=== PATIENT | female | born 1985 | race Caucasian/White ===

== ENCOUNTER 2025-09-18 06:04 | Emergency (ER) | payer BC, SELFPAY ==
[2025-09-18 06:07] VITALS: BP 115/81; BP 121/74; PULSE 51; PULSE 60; PULSE 76; RESP 18; TEMP 36.8; O2SAT 100; O2SAT 94; O2SAT 97
[2025-09-18 06:10] VITALS: BMI 25.0
--- NOTE | 2025-09-18 06:25 | XR_ITS ---
Examination: CT abdomen with intravenous contrast CT pelvis with intravenous contrast 2-D coronal reconstructions 2-D sagittal reconstructions Date and time of exam: September 18, 2025, 0923 hours INDICATIONS: Epigastric pain with nausea blood in the urine beginning 4:00 a.m. this morning. CTDI: vol (mGy) 17.9 DLP: (mGycm) 622 Technique: Multiple axial sections of the abdomen and pelvis have been obtained. 64 slice high-resolution scanner used. 3 mm axial sections have been obtained, post intravenous injection 60 cc [id number] 2-D sagittal, coronal reconstructions obtained. Low dose protocols were performed. One or more of the following dose reduction techniques were used; automated exposure control, adjustment of the mA and/or KV according to patient size, use of iterative reconstruction technique. Findings: 7 mm right liver cysts No gallstones No splenic or pancreatic lesion Normal adrenal glands Multiple 1 to 3 mm right renal calculi Significant scarring right kidney No hydronephrosis or ureteral calculi Aorta normal size Normal appendix Bilateral ovarian follicular cysts Moderate free fluid in the pelvis Retroverted uterus Moderate disc narrowing L5-S1 Bilateral ovarian follicular cysts, the largest on the left side 16 mm Urinary bladder wall thickening IMPRESSION: Significant scarring right kidney Multiple nonobstructing right renal calculi No hydronephrosis or ureteral calculi Normal appendix Moderate free fluid in the pelvis, bilateral ovarian follicular cyst, recommend pelvic sonography follow-up Cystitis pattern
--- NOTE | 2025-09-18 06:27 | PD.EDABDPN ---
ED Abdominal Pain RME/HPI General Chief Complaint: Abdominal Pain Stated complaint: ABD PAIN Time seen by provider: 09/18/25 06:12 Arrival date/time: 09/18/25 06:04 Source: patient Limitations: no limitations RME / HPI Onset (ago): hour(s) Consistency: constant Location: diffuse Severity: moderate Severity scale (1-10): 7 Quality: cramping Radiation: back Migration to: no migration Relieving factors: nothing Exacerbating factors: nothing Context: possible food poisoning Associated symptoms: nausea, vomiting, diarrhea and chills RME / HPI narrative: At 4 AM patient started to have symptoms of nausea vomiting and diarrhea She had more than 10 times vomiting more than 10 times diarrhea associated with her abdominal pain She ate some eggs with has mayonnaise and mustard but was sitting overnight so it wants to be food poisoning Exam: General, patient is alert oriented x 4 Not in distress well-nourished Head and neck, atraumatic normocephalic Pupils equal reactive, ENT exam no mucous membranes Neck is supple tracheal stenosis was not large Chest, no chest tenderness Normal air entry bilaterally No added sounds Cardiovascular, normal heart sounds, no murmurs, no gallop, regular rate and rhythm Abdominal, Soft but tender in the right lower quadrant but no rebound Normal renal angles, bowel sounds are normal no organomegaly Genitourinary, no abdominal hernias, normal genitalia Lower extremity, no edema, no redness, no deformity Musculoskeletal, no joint effusion, no joint tenderness, Neuro, muscle power equal bilaterally, cranial nerves intact, no sensory deficits, no ataxia Skin, no rash no petechiae Impression: Acute gastroenteritis most likely secondary to food poisoning Related Data LMP Date: 09/14/25 Previous Rx's ?Medication ?Instructions ?Recorded dicyclomine 20 mg tablet 20 mg PO TID #20 tabs 09/18/25 ondansetron HCl 4 mg tablet 4 mg PO Q8H 1 week #21 tabs 09/18/25 Allergies Allergy/AdvReac Type Severity Reaction Status Date / Time No Known Allergies Allergy Verified 09/18/25 06:10 Review of Systems Review of Systems Systems Reviewed: All systems reviewed, normal except as documented Past Medical History Past Medical History PSYCHO/SOCIAL: Positive Depression Surgical History OTHER SURGICAL HX: Abdominal wall tucking Social History SMOKING STATUS: Never smoker SUBSTANCE USE: does not use ALCOHOL: Never Travel History EBOLA RISK: No ED Exam Narrative Physical exam: General, patient is alert oriented x 4 Not in distress well-nourished Head and neck, atraumatic normocephalic Pupils equal reactive, ENT exam no mucous membranes Neck is supple tracheal stenosis was not large Chest, no chest tenderness Normal air entry bilaterally No added sounds Cardiovascular, normal heart sounds, no murmurs, no gallop, regular rate and rhythm Abdominal, Soft but tender in the right lower quadrant but no rebound Normal renal angles, bowel sounds are normal no organomegaly Genitourinary, no abdominal hernias, normal genitalia Lower extremity, no edema, no redness, no deformity Musculoskeletal, no joint effusion, no joint tenderness, Neuro, muscle power equal bilaterally, cranial nerves intact, no sensory deficits, no ataxia Skin, no rash no petechiae General Limitations: Present no limitations Course Quality Measures none Orders Category Date Time Status CT Screening NOW Care 09/18/25 06:25 Completed Insert IV NOW Care 09/18/25 06:[address] abdomen pelvis w con Stat Exams 09/18/25 06:25 Completed CBC [CBC] Stat Lab 09/18/25 07:00 Completed CK [Creatine Kinase] Stat Lab 09/18/25 07:00 Completed CMP [Comprehensive Metabolic Panel] Stat Lab 09/18/25 07:00 Completed HCG,Qualitative Serum Stat Lab 09/18/25 07:00 Completed Lactic Acid [Lactate (Lactic Acid)] Stat Lab 09/18/25 07:00 Completed Lipase Stat Lab 09/18/25 07:00 Completed Procalcitonin Stat Lab 09/18/25 07:00 Completed Troponin I Stat Lab 09/18/25 07:00 Completed UA, C/S IF [Urinalysis, C/S if Indicated] Stat Lab 09/18/25 09:19 Completed Morphine* Inj Med 09/18/25 06:25 Discontinued 4 mg IVP X1 ONE Ondansetron Inj [Zofran Inj] Med 09/18/25 06:25 Discontinued 4 mg IVP X1 ONE Ringers Lactated 1000 ml [Lactated Ringers] 1,000 ml Med 09/18/25 06:25 Discontinued IV 125 mls/hr Ringers Lactated 500 ml [Lactated Ringers] 500 ml Med 09/18/25 06:25 Discontinued IV 500 mls/hr Vital Signs Vital signs: Vital Signs Temperature 98.2 F 09/18/25 06:07 Pulse Rate 60 09/18/25 06:07 Respiratory Rate 18 09/18/25 06:07 Blood Pressure 115/81 09/18/25 06:07 Pulse Oximetry (%) 100 09/18/25 06:07 Oxygen Delivery Method Room Air 09/18/25 06:07 Pulse ox is 100% on room air which is adequate. Abdominal Pain MDM MDM Narrative MDM Narrative:: Patient has generalized abdominal pain but is tender in the right lower quadrant Her picture suggest acute gastroenteritis secondary to food poisoning However there is still a small possibility of appendicitis Other possible include UTI Will get a CAT scan and a UA and CBC chemistry As far as the pain we will do morphine and Zofran for the nausea Give IV fluids Check and labs If the CAT scan is negative and the UA was negative and there is no need for antibiotics Management of food poisoning will be symptomatic only I reviewed labs and abdomen pelvis CT. Patient will be discharged home diagnosed with food poisoning, prescribed Zofran and Bentyl. Patient data External records reviewed:: [facility] previous records and EMS form Clinical information provided by:: patient and EMS Social determinants that could affect healthcare access:: none Patient has the following chronic illnesses:: none reported How is presenting disease/condition affected by chronic disease/condition?: no chronic disease Evaluation data The following diagnostics were reviewed and interpreted by me:: lab results and radiology exam(s) Lab and/or radiology exams considered but not ordered:: None Interpretation Summary: Ordering Physician: Celina Clark MD Date of Service: 09/18/25 Procedure(s): CT abdomen pelvis w con Accession Number(s): [id number] cc: Celina Clark MD; Ganesh Ornelas MD; Zaire Juarez MD~ Examination: CT abdomen with intravenous contrast CT pelvis with intravenous contrast 2-D coronal reconstructions 2-D sagittal reconstructions Date and time of exam: September 18, 2025, 0923 hours INDICATIONS: Epigastric pain with nausea blood in the urine beginning 4:00 a.m. this morning. CTDI: vol (mGy) 17.9 DLP: (mGycm) 622 Technique: Multiple axial sections of the abdomen and pelvis have been obtained. 64 slice high-resolution scanner used. 3 mm axial sections have been obtained, post intravenous injection 60 cc [id number] 2-D sagittal, coronal reconstructions obtained. Low dose protocols were performed. One or more of the following dose reduction techniques were used; automated exposure control, adjustment of the mA and/or KV according to patient size, use of iterative reconstruction technique. Findings: 7 mm right liver cysts No gallstones No splenic or pancreatic lesion Normal adrenal glands Multiple 1 to 3 mm right renal calculi Significant scarring right kidney No hydronephrosis or ureteral calculi Aorta normal size Normal appendix Bilateral ovarian follicular cysts Moderate free fluid in the pelvis Retroverted uterus Moderate disc narrowing L5-S1 Bilateral ovarian follicular cysts, the largest on the left side 16 mm Urinary bladder wall thickening IMPRESSION: Significant scarring right kidney Multiple nonobstructing right renal calculi No hydronephrosis or ureteral calculi Normal appendix Moderate free fluid in the pelvis, bilateral ovarian follicular cyst, recommend pelvic sonography follow-up Cystitis pattern Dictated By: Ganesh Ornelas MD Signed By: <Electronically signed by Ganesh Ornelas MD in [place]> 09/18/25 1008 Medications / Prescriptions Medications or Prescriptions considered but not ordered:: None Medication administrations:: Medication Administration History Discontinued Medications Lactated Ringer's (Lactated Ringers) 1,000 mls @ 125 mls/hr IV .Q8H ONE Stop: 09/18/25 14:24 Last Admin: 09/18/25 07:26 Dose: 125 mls/hr Documented By: EF Lactated Ringer's (Lactated Ringers) 500 mls @ 500 mls/hr IV .Q1H ONE Stop: 09/18/25 07:24 Last Infusion: 09/18/25 08:40 Dose: Infused Documented By: Admin: 09/18/25 07:40 Dose: 500 mls/hr Documented By: EF Morphine Sulfate (Morphine Sulf Inj 4 Mg/Ml Vial) 4 mg IVP X1 ONE Stop: 09/18/25 06:26 Last Admin: 09/18/25 07:26 Dose: 4 mg Documented By: EF Ondansetron HCl (Ondansetron Inj 2 Mg/Ml Inj 2 Ml) 4 mg IVP X1 ONE; Protocol Stop: 09/18/25 06:26 Last Admin: 09/18/25 07:25 Dose: 4 mg Documented By: EF See above Consultations Consultation(s) initiated? (list below): No Diagnosis Differential diagnosis abdominal pain: gastroenteritis Most likely diagnosis given after review of the tests above:: Food poisoning Admission Indicated Admission indicated?: not indicated Explain why admission is indicated or not indicated:: With no condition needing emergent intervention, there was no indication for admission. Admission Request Was there a request for admission?: No Disposition Plan Disposition Plan: Discharge Discharge Attestation Discharge Attestation: The patient and all family members were given an opportunity to ask questions and understood the discharge instructions. Discharge instructions specifically effects, indications for sooner follow up or return to the emergency department, and the expected course of current diagnosis. Patient condition: Stable Discharge Plan Plan Patient Disposition: HOME (Self Care) Patient condition on transfer: Stable Prescriptions/Referrals Prescriptions/Med Rec: New ondansetron HCl 4 mg tablet 4 mg PO Q8H 7 Days Qty: 21 0RF dicyclomine 20 mg tablet 20 mg PO TID Qty: 20 0RF Referrals: Zaire Juarez MD [Primary Care Provider, Family Practice] - In 1 week Problem List Clinical Impression: Gastroenteritis, Calculus of kidney, Abdominal pain Patient/Caregiver Discharge Instructions Discharge Activity: activity as tolerated Education Materials: Complementary Care for Pain, ED Gastroenteritis, Noninfectious Print Language: [place] Stand Alone Forms: Barb Award Info., Patient Portal Info Letter
[2025-09-18] MEDS: ONDANSETRON INJ 2 MG/ML INJ 2 ML 4 MG IVP (07:25)
[2025-09-18] MEDS: RINGERS LACTATED 1000 ML 1,000 ML 125 ML IV (07:26)
[2025-09-18] MEDS: MORPHINE SULF INJ 4 MG/ML VIAL IVP (07:26)
[2025-09-18 07:29] LABS: Lactate (Lactic Acid) 1.8 mMol/L (0.4-2.0)
[2025-09-18 07:35] LABS: Basophils # (Auto) 0.1 Thou/mm3 (0.0-0.2); Basophils % (Auto) 1 % (0-2.5); Eosinophils # (Auto) 0.2 Thou/mm3 (0.0-0.5); Eosinophils % (Auto) 1 % (0-10); Hematocrit 35.3 % (36.0-46.0); Hemoglobin 11.2 g/dL (12.0-16.0); Immature Granulocytes Auto 0.05 Thou/mm3 (0.00-0.00); Lymphocytes # (Auto) 1.7 Thou/mm3 (1.0-4.8); Lymphocytes % (Auto) 16 % (10-50); Mean Corpuscular HGB Conc 31.7 g/dl (31.0-37.0); Mean Corpuscular Hemoglobin 25.6 pg (25.0-35.0); Mean Corpuscular Volume 81 fL (80-100); Monocytes # (Auto) 0.6 Thou/mm3 (0.0-0.8); Monocytes % (Auto) 6 % (0-12); Neutrophils # (Auto) 8.2 Thou/mm3 (1.8-7.7); Neutrophils % (Auto) 76 % (37-80); Nucleated Red Blood Cell # 0.00 Thou/mm3 (0.00-0.00); Nucleated Red Blood Cell % 0 /100 WBC (0); Platelet Count 357 Thou/mm3 (140-440); RDW Standard Deviation 43.5 fL (36.4-46.3); Red Blood Count 4.38 Miln/mm3 (4.00-5.20); White Blood Count 10.8 Thou/mm3 (3.6-11.0)
[2025-09-18] MEDS: RINGERS LACTATED 500 ML 500 ML IV (07:40)
[2025-09-18 07:43] VITALS: BP 134/72; PULSE 52; RESP 16; TEMP 36.9; O2SAT 100
[2025-09-18 08:08] LABS: HCG,Qualitative Serum Negative
[2025-09-18 08:10] LABS: Alanine Aminotransferase 10 U/L (10-49); Albumin, Serum 4.7 gm/dL (3.5-5.0); Albumin/Globulin Ratio 2.0 (1.2-2.2); Alkaline Phosphatase 61 U/L (46-116); Anion Gap 11 (7-16); Aspartate Amino Transferase 18 U/L (0-34); BUN/Creatinine Ratio 15 Ratio (12-20); Bilirubin,Total 0.3 mg/dL (0.3-1.2); Blood Urea Nitrogen 15 mg/dL (9-23); Calcium 9.5 mg/dL (8.3-10.6); Calcium (Corrected) 9.5 mg/dL (8.5-10.1); Carbon Dioxide 22.4 mMol/L (20.0-31.0); Chloride 111 mMol/L (98-107); Creatine Kinase 54 U/L (34-171); Creatinine (Component) 1.0 mg/dL (0.6-1.3); Estimated Creatinine Clearance 68.6 mL/min (>60); Globulin 2.3 gm/dL (2.3-3.5); Glucose 58 mg/dL (74-106); Lipase 43 U/L (12-53); Osmolality,Calculated 285 (275-295); Potassium 4.4 mMol/L (3.4-5.1); Procalcitonin < 0.04 ng/ml (0.0-0.49); Sodium 144 mMol/L (136-145); Total Protein 7.0 gm/dL (5.7-8.2); Troponin I < 0.002 ng/mL (0.0-0.045); eGFR > 60 See Note
[2025-09-18 09:24] LABS: Collection Type, Urine Clean Catch
[2025-09-18 09:38] VITALS: BP 99/63; PULSE 73; RESP 18; TEMP 36.9; O2SAT 98
[2025-09-18 09:51] LABS: Bacteria,Urine Rare; Bilirubin,Urine Negative (Negative); Blood,Urine 3+ (Negative); Clarity,Urine Clear (Clear/Hazy); Color,Urine Yellow (Lt Yel-Yel); Culture Indicated,Urine Not Indicated; Glucose, Urine Negative (Negative); Ketones,Urine Negative (Negative); Leukocyte Esterase,Urine Negative (Negative); Nitrite,Urine Negative (Negative); PH,Urine 5.5 (5.0-7.0); Protein,Urine Trace (Neg - Trace); RBC,Urine 10 /hpf (0-3); Specific Gravity,Urine 1.030 (1.001-1.035); Squamous Epithelial Cell,Urine 8 /hpf (0-5); Urobilinogen,Urine Negative mg/dL (0.0-1.0); WBC,Urine 4 /hpf (0-5)
[2025-09-18 11:50] VITALS: BP 95/67; PULSE 61; RESP 16; O2SAT 100
== END 2025-09-18 11:51 | disposition home or self-care (01) ==
PROVIDERS: Emergency Provider Emergency Medicine; PCP Family Medicine
DX: K52.9 Noninfective gastroenteritis and colitis, unspecified (principal); N20.0 Calculus of kidney; N83.01 Follicular cyst of right ovary; N83.02 Follicular cyst of left ovary
CPT/HCPCS: 36415; 74177; 80053; 81001; 82550; 83605; 83690; 84145; 84484; 84703; 85025; 96361; 96374; 96375; 99284; A4649; J2270; J2405; J7120; Q9967